=== PATIENT | male | born 1930 | race Caucasian/White ===

== ENCOUNTER 2018-05-16 17:49 | Inpatient (IN) ==
--- NOTE | 2018-05-16 18:33 | XR ---
EXAM DATE: 05/16/2018 6:30 PM EDT AGE/SEX: 88 years / Male INDICATIONS: Fever. CLINICAL DATA: This is the patient's initial encounter. Patient reports that signs and symptoms have been present for 1 day and indicates a pain score of 0/10. MEDICAL/SURGICAL HISTORY: None. None. COMPARISON: No prior exams available for comparison. FINDINGS: There is bilateral mostly basilar opacity, probably atelectasis. Heart size enlarged. No pneumothorax . No significant effusion. CONCLUSION: Cardiomegaly. Mild basilar density probably represents atelectasis. Electronically signed by: Robinson Amaya MD 05/16/2018 6:31 PM EDT
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
--- NOTE | 2018-05-16 18:49 | CT ---
EXAM DATE: 05/16/2018 6:43 PM EDT AGE/SEX: 88 years / Male INDICATIONS: Altered mental status. CLINICAL DATA: This is the patient's initial encounter. Patient reports that signs and symptoms have been present for 1 day and indicates a pain score of 0/10. MEDICAL/SURGICAL HISTORY: Cardiovascular disease. Hypertension. Coronary artery stent. RADIATION DOSE: 41.67 CTDI (mGy) COMPARISON: No prior exams available for comparison. TECHNIQUE: CT of the head without contrast. Using automated exposure control and adjustment of the mA and/or kV according to patient size, radiation dose was kept as low as reasonably achievable to ob tain optimal diagnostic quality images. DICOM format image data is available electronically for revi ew and comparison. FINDINGS: Cerebrum: The ventricles are normal for age. No evidence of midline shift, mass lesion, hemorrhage or acute infarction. No extraaxial fluid collections are seen. Posterior Fossa: The cerebellum and brainstem are intact. The 4th ventricle is midline. The cerebe llopontine angle is unremarkable. Extracranial: The visualized portion of the orbits is intact. Skull: The calvaria is intact. No evidence of skull fracture. CONCLUSION: 1. No acute intracranial abnormalities. . Electronically signed by: Robinson Amaya MD 05/16/2018 6:47 PM EDT
[2018-05-16 18:55] LABS: Baso % (Auto) 0.2 % (0.0-2.0); Eos % (Auto) 0.1 % (0.0-4.0); Hematocrit 42.3 % (39.0-51.0); Hemoglobin 14.5 gm/dL (13.0-17.0); Lymph # (Auto) 1.5 th/mm3 (1.0-4.8); Lymph % (Auto) 9.2 % (9.0-44.0); Mean Corpuscular HGB Conc 34.2 % (32.0-36.0); Mean Corpuscular Hemoglobin 30.5 pg (27.0-34.0); Mean Corpuscular Volume 89.3 fL (80.0-100.0); Mean Platelet Volume 8.7 fL (7.0-11.0); Mono # (Auto) 1.6 th/mm3 (0.0-0.9); Mono % (Auto) 9.9 % (0.0-8.0); Neut # (Auto) 13.1 th/mm3 (1.8-7.7); Neut % (Auto) 80.6 % (16.0-70.0); Platelet Count 217 th/mm3 (150-450); Red Blood Count 4.73 mil/mm3 (4.50-5.90); Red Cell Distribution Width 15.3 % (11.6-17.2); White Blood Count 16.2 th/mm3 (4.0-11.0)
[2018-05-16 19:01] LABS: Activated Partial Thrombo Time 25.2 sec (24.3-30.1); INR 1.1 Ratio; Prothrombin Time 11.1 sec (9.8-11.6)
[2018-05-16 19:08] LABS: Anion Gap 8 meq/L (5-15); Aspartate Aminotransferase 248 U/L (15-37); Blood Urea Nitrogen 87 mg/dL (7-18); Calcium 9.1 mg/dL (8.5-10.1); Carbon Dioxide 25.4 meq/L (21.0-32.0); Chloride 112 meq/L (98-107); Glomerular Filtration Rate 36 mL/min (>89); Glucose,Random 118 mg/dL (74-106); Magnesium 2.9 mg/dL (1.5-2.5); Potassium 4.1 meq/L (3.5-5.1); Sodium 145 meq/L (136-145)
[2018-05-16 19:09] LABS: Alanine Aminotransferase 152 U/L (12-78)
[2018-05-16] MEDS ORDERED: Metoprolol Inj 5 MG/5 ML Vial IV.PUSH ONE (19:11)
[2018-05-16] MEDS ORDERED: Sod Chloride 0.9% Inj 1,000 ML IV.SIG SCH (19:15)
[2018-05-16] MEDS ORDERED: Sod Chloride 0.9% Inj 500 ML IV.SIG SCH (19:15)
[2018-05-16 19:23] LABS: Alkaline Phosphatase 78 U/L (45-117); Creatine Kinase 5481 U/L (39-308); Total Protein 7.5 g/dL (6.4-8.2); Troponin I 0.04 ng/mL (0.02-0.05)
[2018-05-16] MEDS ORDERED: Sod Chloride 0.9% Inj 1,000 ML IV.CONT SCH (19:30)
[2018-05-16 19:35] LABS: CKMB Percent 0.6 % (0.0-4.0); Creatine Kinase MB 30.2 ng/mL (0.5-3.6)
[2018-05-16 22:15] LABS: Bacteria,Urine Rare /hpf; Bilirubin,Urine Negative (Negative); Clarity,Urine Hazy (Clear); Color,Urine Yellow (Yellw/Straw); Glucose,Urine (UA) Negative (Negative); Hyaline Casts,Urine 12 /lpf (0-3); Leukocyte Esterase,Urine Negative (Negative); Mucus,Urine Few /lpf (Occasional); Nitrite,Urine Negative (Negative); Specific Gravity,Urine 1.012 (1.002-1.035); Squamous Epithelial Cell,Urine <1 /hpf (0-5)
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
[2018-05-16] MEDS: Heparin - SQ 10,000 UNITS/ML Vial SQ SCH (23:01)
[2018-05-16] MEDS: Sod Chloride 0.9% Inj 1,000 ML IV.CONT SCH (23:02)
[2018-05-17 02:01] LABS: Troponin I 0.04 ng/mL (0.02-0.05)
[2018-05-17 02:14] LABS: CKMB Percent 0.5 % (0.0-4.0); Creatine Kinase MB 16.9 ng/mL (0.5-3.6)
[2018-05-17] MEDS: Sod Chloride 0.9% Inj 1,000 ML IV.CONT SCH ×3 (06:38→23:57)
[2018-05-17] MEDS: Heparin - SQ 10,000 UNITS/ML Vial SQ SCH ×3 (06:38→23:57)
--- NOTE | 2018-05-17 08:14 | P.PN ---
Subjective Interval history: Follow-up for rhabdomyolysis, SAY, self-care deficit. Patient is currently awake, alert, oriented to self, hospital in [place], and May 17 (but not the year). He is a poor historian and difficult to obtain timeline of events leading up to his admission. Patient states he feels just very weak, which he believes is secondary to not eating for multiple days. He denies any specific medical complaints including no headache, lightheadedness, chest pain, shortness of breath, cough, abdominal pain, nausea/vomiting, diarrhea, or urinary complaints. He states he has 2 walkers at home however these were out of reach and that is how he ended up on the floor. Physical Exam Vital signs: Vital Signs 05/16/18 18:00 05/16/18 18:07 05/16/18 20:40 Temperature 97.6 F Pulse Rate 108 H 89 77 Respiratory Rate 20 18 Blood Pressure 200/90 H 166/89 H Pulse Oximetry 97 97 97 05/16/18 22:46 05/16/18 23:21 05/17/18 04:00 Temperature 97.8 F 97.5 F L Pulse Rate 69 61 73 Respiratory Rate 18 17 17 Blood Pressure 154/79 H 148/67 H 117/58 L Pulse Oximetry 97 96 96 Intake & Output 05/16/18 05/17/18 05/17/18 18:59 06:59 18:59 Intake Total 1999 Balance 1999 Weight 99.79 kg Intake: IV 1999 NS Inj 1,000 ML @ 125 mls/hr IV 1000 / 1000 .CONT .Q8H CAROLINE Rx#:[id number] NS Inj 1,000 ML @ Wide Open IV. 1000 / 1000 SIG BOLUS CAROLINE Rx#:[id number] Other: # Incontinent Voids 2 Narrative: GENERAL: Well-nourished, well-developed elderly male patient in [facility]. SKIN: Warm and dry. No rash. HEENT: Normocephalic. Atraumatic. Pupils equal and round. Mucous membranes pink and moist. CARDIOVASCULAR: Regular rate and rhythm. No murmur appreciated. RESPIRATORY: No accessory muscle use. Clear to auscultation. Breath sounds equal bilaterally. GASTROINTESTINAL: Abdomen soft, non-tender, nondistended. Normoactive bowel sounds x4. MUSCULOSKELETAL: No obvious deformities. Extremities without clubbing, cyanosis , or edema. NEUROLOGICAL: Awake and alert. No obvious cranial nerve deficits. Motor grossly within normal limits. Moving all extremities equally and spontaneously with generalized weakness. Normal speech. PSYCHIATRIC: Appropriate mood and affect; insight and judgment fair. Results - Labs CBC & Chem 7: 05/16/18 18:30 05/16/18 18:30 Laboratory Results - last 24 hr 05/16/18 05/16/18 05/16/18 18:30 18:30 18:30 WBC 16.2 H RBC 4.73 Hgb 14.5 Hct 42.3 MCV 89.3 MCH 30.5 MCHC 34.2 RDW 15.3 Plt Count 217 MPV 8.7 Neut % (Auto) 80.6 H Lymph % (Auto) 9.2 [place] % (Auto) 9.9 H Eos % (Auto) 0.1 Baso % (Auto) 0.2 Neut # (Auto) 13.1 H Lymph # (Auto) 1.5 [place] # (Auto) 1.6 H Eos # (Auto) 0.0 Baso # (Auto) 0.0 WBC Differential . Differential Comment Auto diff final PT 11.1 INR 1.1 APTT 25.2 Sodium 145 Potassium 4.1 Chloride 112 H Carbon Dioxide 25.4 Anion Gap 8 BUN 87 H Creatinine 1.80 H Estimated GFR 36 L Random Glucose 118 H Lactic Acid Calcium 9.1 Magnesium 2.9 H Total Bilirubin 1.1 H AST 248 H ALT 152 H Alkaline Phosphatase 78 Total Creatine Kinase 5481 H CK-MB (CK-2) 30.2 H CK-MB (CK-2) % 0.6 Troponin I 0.04 B-Natriuretic Peptide Total Protein 7.5 Albumin 4.0 Urine Color Urine Clarity Urine pH Ur Specific [place] Urine Protein Urine Glucose (UA) Urine Ketones Urine Occult Blood Urine Nitrate Urine Bilirubin Urine Urobilinogen Ur Leukocyte Esterase Urine RBC Urine WBC Ur Squamous Epith Cells Urine Bacteria Hyaline Casts Urine Mucus Micro UA Comment Ur Microscopic Review Urine Culture Comments 05/16/18 05/16/18 05/16/18 18:30 18:30 20:44 WBC RBC Hgb Hct MCV MCH MCHC RDW Plt Count MPV Neut % (Auto) Lymph % (Auto) [place] % (Auto) Eos % (Auto) Baso % (Auto) Neut # (Auto) Lymph # (Auto) [place] # (Auto) Eos # (Auto) Baso # (Auto) WBC Differential Differential Comment PT INR APTT Sodium Potassium Chloride Carbon Dioxide Anion Gap BUN Creatinine Estimated GFR Random Glucose Lactic Acid 1.7 Calcium Magnesium Total Bilirubin AST ALT Alkaline Phosphatase Total Creatine Kinase CK-MB (CK-2) CK-MB (CK-2) % Troponin I B-Natriuretic Peptide 104 H Total Protein Albumin Urine Color Yellow Urine Clarity Hazy H Urine pH 5.0 Ur Specific [place] 1.012 Urine Protein Negative Urine Glucose (UA) Negative Urine Ketones Negative Urine Occult Blood Large H Urine Nitrate Negative Urine Bilirubin Negative Urine Urobilinogen Less than 2 Ur Leukocyte Esterase Negative Urine RBC 4 H Urine WBC 1 Ur Squamous Epith Cells <1 Urine Bacteria Rare H Hyaline Casts 12 Urine Mucus Few H Micro UA Comment Culture not ind Ur Microscopic Review Not Reportable Urine Culture Comments Culture not ind 05/17/18 00:55 WBC RBC Hgb Hct MCV MCH MCHC RDW Plt Count MPV Neut % (Auto) Lymph % (Auto) [place] % (Auto) Eos % (Auto) Baso % (Auto) Neut # (Auto) Lymph # (Auto) [place] # (Auto) Eos # (Auto) Baso # (Auto) WBC Differential Differential Comment PT INR APTT Sodium Potassium Chloride Carbon Dioxide Anion Gap BUN Creatinine Estimated GFR Random Glucose Lactic Acid Calcium Magnesium Total Bilirubin AST ALT Alkaline Phosphatase Total Creatine Kinase 3232 H CK-MB (CK-2) 16.9 H CK-MB (CK-2) % 0.5 Troponin I 0.04 B-Natriuretic Peptide Total Protein Albumin Urine Color Urine Clarity Urine pH Ur Specific [place] Urine Protein Urine Glucose (UA) Urine Ketones Urine Occult Blood Urine Nitrate Urine Bilirubin Urine Urobilinogen Ur Leukocyte Esterase Urine RBC Urine WBC Ur Squamous Epith Cells Urine Bacteria Hyaline Casts Urine Mucus Micro UA Comment Ur Microscopic Review Urine Culture Comments - Imaging Impressions Chest X-Ray 05/16/18 18:07 CONCLUSION: Cardiomegaly. Mild basilar density probably represents atelectasis. Head CT 05/16/18 18:07 CONCLUSION: 1. No acute intracranial abnormalities. . Assessment and Plan - Plan 88 y/o male with a history of anxiety, HTN, and hypothyroid was brought in as a cool act after he called 911 because he could not get off the floor. Cool act lifted by ER physician. Rhabdomyolysis, CPK 5481: suspect secondary to fall -Continue IVF NS at 125, monitor for overload -Trend CPK, improving, CPK 3232 today SAY: Cr 1.8, no previous labs to compare. Suspect secondary to dehydration and poor recent oral intake -Continue IVF -avoid nephrotoxins -monitor renal function Transaminitis: possibly hemoconcentrated due to dehydration -no GI complaints -check liver U/S -avoid hepatotoxins -Trend liver enzymes Self care deficit, patient lives alone, estranged from daughters and feels grand -daughter is trying to hurt him -check B12, thiamine, TSH -PT/OT consult -Case Management consulted for possible placement CHF, unknown, patient denies history, no significant signs of fluid overload -BNP minimally elevated at 104 -hold Lasix for now due to kidney function -monitor fluid status -Resume carvedilol Hypertension, chronic -Resume home medications, monitor vitals Hypothyroid, chronic -Resume home medications -check TSH DVT prophylaxis: Heparin sq Discharge Planning: Await PT/OT eval. Likely needs placement.
[2018-05-17 09:18] LABS: Baso % (Auto) 0.3 % (0.0-2.0); Eos # (Auto) 0.2 th/mm3 (0.0-0.4); Eos % (Auto) 1.5 % (0.0-4.0); Hemoglobin 11.8 gm/dL (13.0-17.0); Lymph # (Auto) 1.7 th/mm3 (1.0-4.8); Lymph % (Auto) 14.5 % (9.0-44.0); Mean Corpuscular HGB Conc 33.6 % (32.0-36.0); Mean Corpuscular Hemoglobin 30.5 pg (27.0-34.0); Mean Corpuscular Volume 90.7 fL (80.0-100.0); Mean Platelet Volume 8.9 fL (7.0-11.0); Mono # (Auto) 1.3 th/mm3 (0.0-0.9); Mono % (Auto) 11.1 % (0.0-8.0); Neut # (Auto) 8.4 th/mm3 (1.8-7.7); Neut % (Auto) 72.6 % (16.0-70.0); Platelet Count 174 th/mm3 (150-450); Red Blood Count 3.86 mil/mm3 (4.50-5.90); Red Cell Distribution Width 15.2 % (11.6-17.2); White Blood Count 11.5 th/mm3 (4.0-11.0)
[2018-05-17 09:36] LABS: Calcium 7.9 mg/dL (8.5-10.1); Carbon Dioxide 21.8 meq/L (21.0-32.0); Potassium 3.2 meq/L (3.5-5.1)
[2018-05-17 09:53] LABS: Troponin I 0.04 ng/mL (0.02-0.05)
[2018-05-17 10:06] LABS: CKMB Percent 0.5 % (0.0-4.0)
--- NOTE | 2018-05-17 11:07 | US ---
EXAM DATE: 05/17/2018 11:03 AM EDT AGE/SEX: 88 years / Male INDICATIONS: Elevated lab values. CLINICAL DATA: This is the patient's initial encounter. Patient reports that signs and symptoms have been present for 3 days and indicates a pain score of 0/10. MEDICAL/SURGICAL HISTORY: Hypertension. Hypothyroidism. Coronary artery stent. Hip replacement . COMPARISON: No prior exams available for comparison. MEASUREMENTS: Liver:__ 13.5 cm. Common Bile Duct:__ 4mm. Right Kidney:__ 10.0 x 4.7 x 5.7 cm. FINDINGS: Liver: Mildly echogenic without focal lesion or ductal dilatation. Portal Vein: Hepatopedal flow seen in portal vein. Common Duct: No intraluminal mass or stone visualized. Gallbladder: Demonstrates no wall thickening or pericholecystic fluid. Stones visualized. Pancreas: Not well visualized. Right Kidney: No hydronephrosis. Small cortical cyst measures 7 mm. Other: None. CONCLUSION: 1. Liver is echogenic which can be seen with hepatic steatosis. 2. Cholelithiasis. 3. Right renal cyst. Electronically signed by: Guru Hernandez MD 05/17/2018 11:06 AM EDT
[2018-05-17 14:05] LABS: Thyroid Stimulating Hormone 3.59 uIU/mL (0.358-3.740)
[2018-05-17 14:09] LABS: CKMB Percent 0.5 % (0.0-4.0)
--- NOTE | 2018-05-17 15:10 | ECG ---
Date Performed: 05/17/2018 Time Performed: 06:01:05 PTAGE: 88 years EKG: ATRIAL FIBRILLATION WITH ABERRANT CONDUCTION OR VENTRICULAR PREMATURE COMPLEXES BORDERLINE LEFT AXIS DEVIATION POSSIBLE LEFT VENTRICULAR HYPERTROPHY MODERATE T-WAVE ABNORMALITY, CONSIDER ANTER IOR ISCHEMIA Since the previous tracing, no significant change noted ABNORMAL ECG NO PREVIOUS TRACING DOCTOR: Jung Keating Interpretating Date/Time 05/17/2018 14:56:34
--- NOTE | 2018-05-17 15:10 | ECG ---
Date Performed: 05/17/2018 Time Performed: 00:40:23 PTAGE: 88 years EKG: Sinus rhythm WITH OCCASIONAL SUPRAVENTRICULAR PREMATURE COMPLEXES MARKED LEFT AXIS DEVIATION LEFT VENTRICULAR HYP ERTROPHY AND ST-T CHANGE Since the previous tracing, no significant change noted ABNORMAL ECG NO PREVIOUS TRACING DOCTOR: Jung Keating Interpretating Date/Time 05/17/2018 14:56:43
--- NOTE | 2018-05-17 15:10 | ECG ---
Date Performed: 05/16/2018 Time Performed: 19:08:55 PTAGE: 88 years EKG: ATRIAL FIBRILLATION WITH RAPID VENTRICULAR RESPONSE WITH ABERRANT CONDUCTION OR VENTRICULAR PREMATURE COMPLEXES MARKED LEFT AXIS DEVIATION VOLTAGE CRITERIA FOR LVH NONSPECIFIC ST & T-WAVE ABNO RMALITY Since the previous tracing, no significant change noted ABNORMAL ECG NO PREVIOUS TRACING DOCTOR: Jung Keating Interpretating Date/Time 05/17/2018 14:56:52
[2018-05-18] MEDS: Acetaminophen 325 MG Tablet PO PRN ×4 (01:39→23:38)
[2018-05-18] MEDS: Heparin - SQ 10,000 UNITS/ML Vial SQ SCH ×3 (05:15→22:28)
[2018-05-18] MEDS: Sod Chloride 0.9% Inj 1,000 ML IV.CONT SCH ×3 (06:46→22:29)
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
[2018-05-18 12:00] LABS: Baso % (Auto) 0.1 % (0.0-2.0); Eos % (Auto) 0.2 % (0.0-4.0); Hemoglobin 11.9 gm/dL (13.0-17.0); Lymph # (Auto) 0.8 th/mm3 (1.0-4.8); Lymph % (Auto) 4.9 % (9.0-44.0); Mean Corpuscular HGB Conc 33.1 % (32.0-36.0); Mean Corpuscular Hemoglobin 30.2 pg (27.0-34.0); Mean Corpuscular Volume 91.4 fL (80.0-100.0); Mean Platelet Volume 8.9 fL (7.0-11.0); Mono # (Auto) 1.5 th/mm3 (0.0-0.9); Neut % (Auto) 85.8 % (16.0-70.0); Platelet Count 161 th/mm3 (150-450); Red Blood Count 3.94 mil/mm3 (4.50-5.90); Red Cell Distribution Width 15.5 % (11.6-17.2); White Blood Count 16.3 th/mm3 (4.0-11.0)
[2018-05-18 12:34] LABS: Calcium 8.2 mg/dL (8.5-10.1); Carbon Dioxide 25.6 meq/L (21.0-32.0); Potassium 3.2 meq/L (3.5-5.1)
[2018-05-18 12:55] LABS: CKMB Percent 0.4 % (0.0-4.0); Creatine Kinase MB 2.8 ng/mL (0.5-3.6)
[2018-05-18 15:05] LABS: Hepatitits B Surface Antigen Nonreactive (Nonreactive)
--- NOTE | 2018-05-18 15:15 | XR ---
EXAM DATE: 05/18/2018 3:12 PM EDT AGE/SEX: 88 years / Male INDICATIONS: . Fever starting today CLINICAL DATA: This is the patient's initial encounter. Patient reports that signs and symptoms have been present for 1 day and indicates a pain score of 0/10. MEDICAL/SURGICAL HISTORY: None. None. COMPARISON: [facility], CHEST 1V SINGLE AP, 05/16/2018. . FINDINGS: Heart is enlarged. There is mild interstitial prominence. There is no evidence consolidation, pleural effusion or pneumothorax. The portion of the bony skeleton visualized is unremarkable. CONCLUSION: Cardiomegaly with mild interstitial prominence. Superimposed inflammatory process cannot be entirely excluded. Electronically signed by: Wai Brown MD 05/18/2018 3:14 PM EDT
[2018-05-18 15:38] LABS: Amorphous Sediment,Urine Rare /hpf; Bilirubin,Urine Negative (Negative); Clarity,Urine Clear (Clear); Color,Urine Yellow (Yellw/Straw); Glucose,Urine (UA) Negative (Negative); Hyaline Casts,Urine 1 /lpf (0-3); Leukocyte Esterase,Urine Negative (Negative); Mucus,Urine Few /lpf (Occasional); Nitrite,Urine Negative (Negative); Specific Gravity,Urine 1.017 (1.002-1.035); Squamous Epithelial Cell,Urine <1 /hpf (0-5)
[2018-05-18 15:42] LABS: Hepatitis A IgM Antibody Nonreactive (Nonreactive)
--- NOTE | 2018-05-18 15:43 | P.PNWCN ---
Wound Care Nurse Consult Description: Consult for wound management of hip and arm per Ebony LEON. Communicated with: NISHI Ritchie Recommendation: Daily to left hip: Cleanse with Normal Saline only. Pat dry. Apply Santyl nickel thick to necrotic wound from edge to edge. Cover with moistened gauze (NS, squeeze out excess). Secure with dry cover. Additional information: Patient seen in H pod for skin assessment. For skin tears please follow protocol found on skin assessment tool: Versatel one to remain in place for 7 days changing outer dressing when soiled. Wound/Pressure Injury - Wound Left Hip Wound Staging: Unstageable Wound Assessment: Admission Wound Type: Pressure Injury Is This a Chronic Wound: No Length (cm): 9 (cm) Width (cm): 5 (cm) Depth (cm): 0 (cm) Wound Bed Appearance: Yellow (necrotic adherent slough) Drainage Amount: None Drainage Odor: No Odor Dressing Status: Dry & Intact
[2018-05-18] MEDS: Collagenase Oint 30 GM Tube TOPICAL SCH (19:17)
[2018-05-18] MEDS ORDERED: Bisacodyl 10 MG Supp RECTAL ONE (23:01)
[2018-05-19] MEDS: Sod Chloride 0.9% Inj 1,000 ML IV.CONT SCH ×2 (03:42→06:42)
[2018-05-19] MEDS: Acetaminophen 325 MG Tablet PO PRN ×2 (05:09→21:31)
[2018-05-19] MEDS: Heparin - SQ 10,000 UNITS/ML Vial SQ SCH ×3 (05:09→21:31)
[2018-05-19 07:37] LABS: Baso % (Auto) 0.2 % (0.0-2.0); Eos % (Auto) 0.1 % (0.0-4.0); Hemoglobin 10.4 gm/dL (13.0-17.0); Lymph # (Auto) 0.6 th/mm3 (1.0-4.8); Lymph % (Auto) 4.2 % (9.0-44.0); Mean Corpuscular HGB Conc 33.6 % (32.0-36.0); Mean Corpuscular Hemoglobin 30.2 pg (27.0-34.0); Mean Corpuscular Volume 90.1 fL (80.0-100.0); Mean Platelet Volume 8.7 fL (7.0-11.0); Mono # (Auto) 1.1 th/mm3 (0.0-0.9); Neut # (Auto) 11.8 th/mm3 (1.8-7.7); Neut % (Auto) 87.5 % (16.0-70.0); Platelet Count 121 th/mm3 (150-450); Red Blood Count 3.44 mil/mm3 (4.50-5.90); Red Cell Distribution Width 15.1 % (11.6-17.2); White Blood Count 13.5 th/mm3 (4.0-11.0)
[2018-05-19 08:15] LABS: Calcium 7.8 mg/dL (8.5-10.1); Carbon Dioxide 23.4 meq/L (21.0-32.0); Potassium 3.3 meq/L (3.5-5.1)
[2018-05-19] MEDS: Collagenase Oint 30 GM Tube TOPICAL SCH (09:11)
--- NOTE | 2018-05-19 14:32 | P.PNIM ---
Subjective Interval history: SOB when getting up to walk. did not void today per nursing staff. no abdominal pain. Physical Exam Vital signs: Vital Signs 05/18/18 15:56 05/18/18 20:00 05/18/18 20:50 Temperature 98.3 F 97.9 F Pulse Rate 84 95 H 98 H Respiratory Rate 18 22 Blood Pressure 126/59 L 148/72 H Pulse Oximetry 98 97 05/18/18 23:50 05/18/18 23:57 05/19/18 00:00 Temperature 97.7 F Pulse Rate 110 H 99 H 93 H Respiratory Rate 22 22 Blood Pressure 142/70 H Pulse Oximetry 96 05/19/18 04:00 05/19/18 05:20 05/19/18 08:00 Temperature 101.1 F H 99.8 F H Pulse Rate 91 H 96 H 92 H Respiratory Rate 22 18 Blood Pressure 136/62 135/63 Pulse Oximetry 95 95 05/19/18 12:00 Temperature 97.9 F Pulse Rate 96 H Respiratory Rate 19 Blood Pressure 160/72 H Pulse Oximetry 98 Intake & Output 05/18/18 05/19/18 05/19/18 18:59 06:59 18:59 Intake Total 1820 / 1820 1650 / 1650 Balance 1820 / 1820 1650 / 1650 Weight 99.1 kg Intake: IV 1000 / 1000 1210 / 1210 NS Inj 1,000 ML @ 125 mls/hr IV 1000 / 1000 1210 / 1210 .CONT .Q8H [facility] Rx#:[id number] Oral 820 / 820 440 / 440 Other: # Voids 1,120 # Incontinent Voids 1 # Incontinent Bowel Movements 1 Narrative: GENERAL: Well-nourished, well-developed elderly male patient in [facility]. SKIN: Warm and dry. Multiple abrasions and ecchymosis in various stages of healing throughout extremities. CARDIOVASCULAR: Regular rate and rhythm. RESPIRATORY: No accessory muscle use. diminished breath sounds on bilateral bases GASTROINTESTINAL: Abdomen soft, non-tender, nondistended. Normoactive bowel sounds x4. MUSCULOSKELETAL: No obvious deformities. Extremities without clubbing, cyanosis , has trace to 1+ edema NEUROLOGICAL: Awake and alert to person, place, time. No obvious cranial nerve deficits. Motor grossly within normal limits. Moving all extremities equally and spontaneously with generalized weakness. Normal speech. PSYCHIATRIC: Appropriate mood and affect; insight and judgment fair. Results - Labs CBC & Chem 7: 05/19/18 06:57 05/19/18 06:57 Laboratory Results - last 24 hr 05/17/18 05/18/18 05/18/18 12:40 13:15 14:00 WBC RBC Hgb Hct MCV MCH MCHC RDW Plt Count MPV Neut % (Auto) Lymph % (Auto) [place] % (Auto) Eos % (Auto) Baso % (Auto) Neut # (Auto) Lymph # (Auto) [place] # (Auto) Eos # (Auto) Baso # (Auto) WBC Differential Differential Comment Sodium Potassium Chloride Carbon Dioxide Anion Gap BUN Creatinine Estimated GFR Random Glucose Calcium Thiamine 126 Urine Color Yellow Urine Clarity Clear Urine pH 5.0 Ur Specific [place] 1.017 Urine Protein 30 H Urine Glucose (UA) Negative Urine Ketones Negative Urine Occult Blood Small H Urine Nitrate Negative Urine Bilirubin Negative Urine Urobilinogen Less than 2 Ur Leukocyte Esterase Negative Urine RBC 3 Urine WBC 1 Ur Squamous Epith Cells <1 Amorphous Sediment Rare H Hyaline Casts 1 Granular Casts 1 Urine Mucus Few H Micro UA Comment Culture not ind Ur Microscopic Review Not Reportable Urine Culture Comments Culture not ind Hepatitis A IgM Ab Nonreactive Hep Bs Antigen Nonreactive Hep B Core IgM Ab Nonreactive Hep C IgG Ab Nonreactive 05/19/18 05/19/18 06:57 06:57 WBC 13.5 H RBC 3.44 L Hgb 10.4 L Hct 31.0 L MCV 90.1 MCH 30.2 MCHC 33.6 RDW 15.1 Plt Count 121 L MPV 8.7 Neut % (Auto) 87.5 H Lymph % (Auto) 4.2 L [place] % (Auto) 8.0 Eos % (Auto) 0.1 Baso % (Auto) 0.2 Neut # (Auto) 11.8 H Lymph # (Auto) 0.6 L [place] # (Auto) 1.1 H Eos # (Auto) 0.0 Baso # (Auto) 0.0 WBC Differential . Differential Comment Auto diff final Sodium 145 Potassium 3.3 L Chloride 113 H Carbon Dioxide 23.4 Anion Gap 9 BUN 24 H Creatinine 1.11 Estimated GFR 63 L Random Glucose 114 H Calcium 7.8 L Thiamine Urine Color Urine Clarity Urine pH Ur Specific [place] Urine Protein Urine Glucose (UA) Urine Ketones Urine Occult Blood Urine Nitrate Urine Bilirubin Urine Urobilinogen Ur Leukocyte Esterase Urine RBC Urine WBC Ur Squamous Epith Cells Amorphous Sediment Hyaline Casts Granular Casts Urine Mucus Micro UA Comment Ur Microscopic Review Urine Culture Comments Hepatitis A IgM Ab Hep Bs Antigen Hep B Core IgM Ab Hep C IgG Ab Microbiology 05/16/18 18:15 Blood - Peripheral Aerobic Blood Culture - Preliminary No growth in 3 days 05/16/18 18:15 Blood - Peripheral Anaerobic Blood Culture - Preliminary No growth in 3 days 05/16/18 18:15 Blood - Peripheral Aerobic Blood Culture - Preliminary No growth in 3 days 05/16/18 18:15 Blood - Peripheral Anaerobic Blood Culture - Preliminary No growth in 3 days - Imaging Impressions Chest X-Ray 05/18/18 00:00 CONCLUSION: Cardiomegaly with mild interstitial prominence. Superimposed inflammatory process cannot be entirely excluded. Assessment and Plan - Plan 88 y/o male with a history of anxiety, HTN, and hypothyroid was brought in as a cool act after he called 911 because he could not get off the floor. Cool act lifted by ER physician. 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: improved on IVF avoid nephrotoxins SIRS: +Leukocytosis WBC persists with fever spike 101 with likely sepsis with underlying early community acquired pneumonia -repeat CXR PA/Lat shows possible inflammatory process -Blood cultures with NGTD Start IV rocephin and zithromax Transaminitis: possibly hemoconcentrated due to dehydration -no GI complaints -Liver U/S reviewed, liver is echogenic which can be seen with hepatic steatosis ; cholelithiasis -lft trended down Self care deficit: patient lives alone, estranged from daughters and feels grand -daughter is trying to hurt him -B12 and TSH wnl -PT/OT consult, recommends rehab -Case Management consulted for placement Nephew at bedside and providing social support CHF, unknown, Dose of Lasix today due to SOB and fluid overload -Resume carvedilol Hypertension, chronic -Resume home medications, monitor vitals Hypothyroid, chronic -Resume home medications -TSH wnl hypokalemia - replete DVT prophylaxis: Heparin sq Continue PT Discharge Planning: will need SNF when med stable
[2018-05-19] MEDS: Azithromycin 250 MG Tablet PO SCH (14:59)
[2018-05-19] MEDS: Carvedilol 12.5 MG Tablet PO SCH ×2 (19:10→21:31)
[2018-05-20] MEDS: Levothyroxine 150 MCG Tablet PO SCH (06:12)
[2018-05-20] MEDS: Heparin - SQ 10,000 UNITS/ML Vial SQ SCH ×3 (06:12→21:39)
[2018-05-20 08:04] LABS: Carbon Dioxide 25.5 meq/L (21.0-32.0); Potassium 3.7 meq/L (3.5-5.1)
[2018-05-20] MEDS: Carvedilol 12.5 MG Tablet PO SCH ×2 (08:56→21:38)
[2018-05-20] MEDS: Collagenase Oint 30 GM Tube TOPICAL SCH (08:56)
[2018-05-20] MEDS: Azithromycin 250 MG Tablet PO SCH (08:56)
--- NOTE | 2018-05-20 11:36 | P.PNIM ---
Subjective Interval history: Patient states that his breathing is better. There is fever spike overnight per nursing staff. No complaints of chest pain. Did urinate on his own last night. Physical Exam Vital signs: Vital Signs 05/19/18 12:00 05/19/18 14:47 05/19/18 16:00 Temperature 97.9 F 99.3 F Pulse Rate 96 H 89 98 H Respiratory Rate 19 18 18 Blood Pressure 160/72 H 121/65 Pulse Oximetry 98 95 05/19/18 20:00 05/19/18 21:56 05/19/18 23:55 Temperature 102.1 F H Pulse Rate 85 89 73 Respiratory Rate 18 25 H Blood Pressure 144/62 H Pulse Oximetry 96 05/20/18 00:00 05/20/18 00:59 05/20/18 02:00 Temperature 100.0 F H 98.1 F Pulse Rate 82 75 Respiratory Rate 18 20 Blood Pressure 138/64 Pulse Oximetry 95 05/20/18 03:45 05/20/18 04:00 05/20/18 06:31 Temperature 99.8 F H Pulse Rate 71 74 78 Respiratory Rate 18 18 Blood Pressure 141/62 H Pulse Oximetry 95 05/20/18 08:00 05/20/18 10:15 Temperature 97.3 F L Pulse Rate 70 69 Respiratory Rate 20 22 Blood Pressure 137/62 Pulse Oximetry 95 Intake & Output 05/19/18 05/20/18 05/20/18 18:59 06:59 18:59 Intake Total 340 / 340 Output Total 500 / 500 Balance 340 / 340 -500 / -500 Weight 108.7 kg Intake: IV 100 / 100 Rocephin Inj 1,000 MG In NS Inj 100 / 100 100 ML @ 200 mls/hr IV.SIG Q24H [facility] Rx#:[id number] Oral 240 / 240 Output: Urine 500 / 500 Other: # Voids 2 # Bowel Movements 0 Narrative: GENERAL: Well-nourished, well-developed elderly male patient in [facility]. SKIN: Warm and dry. Multiple abrasions and ecchymosis in various stages of healing throughout extremities. CARDIOVASCULAR: Regular rate and rhythm. RESPIRATORY: Few expiratory wheezes on the right base, no retractions. GASTROINTESTINAL: Abdomen soft, non-tender, nondistended. Normoactive bowel sounds x4. MUSCULOSKELETAL: No obvious deformities. Extremities without clubbing, cyanosis , has trace to 1+ edema NEUROLOGICAL: Awake and alert to person, place, time. No obvious cranial nerve deficits. Motor grossly within normal limits. Moving all extremities equally and spontaneously with generalized weakness. Normal speech. PSYCHIATRIC: Appropriate mood and affect; insight and judgment fair. Results - Labs CBC & Chem 7: 05/19/18 06:57 05/20/18 06:38 Laboratory Results - last 24 hr 05/20/18 06:38 Sodium 141 Potassium 3.7 Chloride 108 H Carbon Dioxide 25.5 Anion Gap 8 BUN 23 H Creatinine 1.21 Estimated GFR 57 L Random Glucose 93 Calcium 8.0 L Microbiology 05/16/18 18:15 Blood - Peripheral Aerobic Blood Culture - Preliminary No growth in 4 days 05/16/18 18:15 Blood - Peripheral Anaerobic Blood Culture - Preliminary No growth in 4 days 05/16/18 18:15 Blood - Peripheral Aerobic Blood Culture - Preliminary No growth in 4 days 05/16/18 18:15 Blood - Peripheral Anaerobic Blood Culture - Preliminary No growth in 4 days Assessment and Plan - Plan 88 y/o male with a history of anxiety, HTN, and hypothyroid was brought in as a cool act after he called 911 because he could not get off the floor. Cool act lifted by ER physician. 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 SIRS: +Leukocytosis WBC persists with fever spike 101 with likely sepsis with underlying early community acquired pneumonia -repeat CXR PA/Lat shows possible inflammatory process -Blood cultures with NGTD Start IV rocephin and zithromax Monitor for any further fever for the next 24 hours. DuoNeb treatment Transaminitis: possibly hemoconcentrated due to dehydration -no GI complaints -Liver U/S reviewed, liver is echogenic which can be seen with hepatic steatosis ; cholelithiasis -lft trended down Self care deficit: patient lives alone, estranged from daughters and feels grand -daughter is trying to hurt him -B12 and TSH wnl -PT/OT consult, recommends rehab -Case Management consulted for placement Nephew at bedside and providing social support CHF, unknown, and mild exacerbation Lasix will be resumed -Resume carvedilol Check 2D echo to evaluate for ejection fracture Hypertension, chronic -Resume home medications, monitor vitals Hypothyroid, chronic -Resume home medications -TSH wnl hypokalemia - replete Urinary retentionresolved, Flomax initiated DVT prophylaxis: Heparin sq Continue PT Discharge Planning: will need SNF when medically stable Possible discharge to [facility] facility in the next 24-48 hours
--- NOTE | 2018-05-20 16:09 | P.DIET ---
Nutritional Evaluation Type of nutrition evaluation: initial Nutrition screening: [facility] Screening comments: 05/20/18 [facility] Wound; unstageable pressure injury Subjective Subjective Comments: Pt eating lunch when visited; pt's nephew at bedside. Pt says he ate "everything " on his breakfast tray today. Pt says he tolerates dairy products and is receptive to receiving Ensure Enlive twice daily. Objective - Diagnosis Rhabdomyoloysis - Objective % IBW: 136 Body Weight Used for Calculations: IBW (72.7 kg) Energy Needs - Lower Range (kCal/kg): 30 Energy Needs - Upper Range (kCal/kg): 35 Lower Limit kCal/kg (kCals): 2,181 Upper Limit kCal/kg (kCals): 2,545 Lower Limit Protein Factor (Grams per Kg): 1.4 Upper Limit Protein Factor (Grams per Kg): 1.6 Lower Protein Needs (Protein): 102 Upper Protein Needs (Protein): 116 Fluid Factor (ml/kg): 30 Estimated Fluid Needs (ml): 2,181 Dietitian Reviewed in Medical Record: Current diet, Curent medications, Intake & Output, Labs, Medical history, Wound/DTI Diet Order: Cardiac Wound Care Note: 05/18/18 WOCN note-left hip Objective Comments: PMH includes: anxiety, Cataract, hBP, hypothyroidism LBM 05/19 Assessment Assessment: Pt iis at high nutrition risk r/t diagnosis and increased needs for wound healing. Variable po intake 10% to 75%. Send Milk and yogurt TID and low fat cheese BI for additional protein. Send Ensure Enlive BID(= 350 kcal and 20g protein per serving)to aid in wound healing(Enlive contains HMB for wound healing). Labs reviewed. Dietitian following. Recommendations: 1. Send Milk and yogurt TID and low fat cheese BI for additional protein 2. Send Ensure Enlive BID to aid in wound healing 3. Dietitian following Dietitian to Monitor: Lab values, Supplement acceptance, Intake & Output, Weight change, PO Intake, Wound/skin status, Medical course
--- NOTE | 2018-05-20 18:41 | ECHRPT ---
Indication: HEART FAILURE CONCLUSIONS Technically difficult study. The left ventricular systolic function is low normal with an estimated ejection fraction in the rang e of 50- 55%. There was limited left ventricular wall motion assessment due to poor endocardial visualization. Doppler parameters are consistent with impaired left ventricular relaxtion (grade 1 diastolic dysfun ction). There is trace tricuspid valve regurgitation. BP: / HR: Rhythm: Sinus MEASUREMENTS (Male / Female) Normal Values Technical Quality:Technically difficult study 2D ECHO LV Diastolic Diameter PLAX 5.6 cm 4.2 - 5.9 / 3.9 - 5.3 cm LV Systolic Diameter PLAX 4.6 cm IVS Diastolic Thickness 1.0 cm 0.6 - 1.0 / 0.6 - 0.9 cm LVPW Diastolic Thickness 0.8 cm 0.6 - 1.0 / 0.6 - 0.9 cm LV Relative Wall Thickness 0.3 RV Internal Dim ED PLAX 3.5 cm LVOT Diameter 2.4 cm Aortic Root Diameter 3.7 cm LA Systolic Diameter LX 4.0 cm 3.0 - 4.0 / 2.7 - 3.8 cm DOPPLER AV Peak Velocity 96.6 cm/s AV Peak Gradient 3.7 mmHg LVOT Peak Velocity 82.4 cm/s LVOT Peak Gradient 2.7 mmHg AV Area Cont Eq pk 3.9 cm Mitral E Point Velocity 65.6 cm/s Mitral A Point Velocity 77.0 cm/s Mitral E to A Ratio 0.9 TR Peak Velocity 92.3 cm/s TR Peak Gradient 3.4 mmHg PV Peak Velocity 76.3 cm/s PV Peak Gradient 2.3 mmHg FINDINGS LEFT VENTRICLE The left ventricle is not well visualized. The left ventricular systolic function is low normal with an estimated ejection fraction in the rang e of 50- 55%. There was limited left ventricular wall motion assessment due to poor endocardial visualization. Doppler parameters are consistent with impaired left ventricular relaxtion (grade 1 diastolic dysfun ction). RIGHT VENTRICLE The right ventricle was not well visualized. LEFT ATRIUM The left atrial size is normal. RIGHT ATRIUM The right atrium is not well visualized. ATRIAL SEPTUM The interatrial septum not well visualized. MITRAL VALVE The mitral valve is not well visualized. No mitral valve regurgitation. No mitral valve stenosis. AORTIC VALVE The aortic valve is not well visualized. No aortic valve stenosis. No aortic valve regurgitation. TRICUSPID VALVE The tricuspid valve is not well visualized. There is trace tricuspid valve regurgitation. No tricuspid valve stenosis. PULMONARY VALVE No pulmonary valve regurgitation. VESSELS The inferior vena cava is normal in size. Jassi Adamson DO (Electronically Signed) Final Date:20 May 2018 18:40
[2018-05-20] MEDS: Acetaminophen 325 MG Tablet PO PRN (21:38)
[2018-05-21] MEDS: Acetaminophen 325 MG Tablet PO PRN ×2 (04:52→22:41)
[2018-05-21] MEDS: Heparin - SQ 10,000 UNITS/ML Vial SQ SCH ×3 (05:21→22:41)
[2018-05-21] MEDS: Levothyroxine 150 MCG Tablet PO SCH (06:14)
[2018-05-21 07:26] LABS: Baso % (Auto) 0.2 % (0.0-2.0); Eos # (Auto) 0.2 th/mm3 (0.0-0.4); Eos % (Auto) 2.4 % (0.0-4.0); Hematocrit 30.9 % (39.0-51.0); Hemoglobin 10.4 gm/dL (13.0-17.0); Lymph # (Auto) 0.9 th/mm3 (1.0-4.8); Lymph % (Auto) 9.1 % (9.0-44.0); Mean Corpuscular HGB Conc 33.8 % (32.0-36.0); Mean Corpuscular Hemoglobin 30.8 pg (27.0-34.0); Mean Corpuscular Volume 91.1 fL (80.0-100.0); Mean Platelet Volume 9.7 fL (7.0-11.0); Mono % (Auto) 10.4 % (0.0-8.0); Neut # (Auto) 7.6 th/mm3 (1.8-7.7); Neut % (Auto) 77.9 % (16.0-70.0); Platelet Count 107 th/mm3 (150-450); Red Blood Count 3.39 mil/mm3 (4.50-5.90); Red Cell Distribution Width 15.4 % (11.6-17.2); White Blood Count 9.7 th/mm3 (4.0-11.0)
[2018-05-21 07:56] LABS: Calcium 7.9 mg/dL (8.5-10.1); Carbon Dioxide 25.1 meq/L (21.0-32.0); Potassium 3.5 meq/L (3.5-5.1)
[2018-05-21] MEDS: Furosemide 40 MG Tablet PO SCH (08:43)
[2018-05-21] MEDS: Azithromycin 250 MG Tablet PO SCH (08:43)
[2018-05-21] MEDS: Carvedilol 12.5 MG Tablet PO SCH ×2 (08:45→22:41)
[2018-05-21] MEDS: Collagenase Oint 30 GM Tube TOPICAL SCH (08:46)
[2018-05-21 10:18] LABS: Lymphocytes 3 % (9-44); Metamyelocytes 1 % (0-1); Monocytes 7 % (0-8)
[2018-05-21 10:19] LABS: Platelet Morphology Normal (Normal); RBC Morphology Normal (Normal)
[2018-05-21] MEDS ORDERED: MethylPREDNISolone Sod Succinate Inj 40 MG/ML Vial IV.PUSH ONE (14:00)
--- NOTE | 2018-05-21 15:50 | P.PNIM ---
Subjective Interval history: 88-year-old male hospitalized for rhabdomyolysis secondary to a fall onto the floor with 3 days on floor. He states he did not sleep well overnight, has mild pain, is still wheezing. Physical Exam Vital signs: Vital Signs 05/20/18 16:00 05/20/18 16:22 05/20/18 19:55 Temperature 99.4 F Pulse Rate 78 65 70 Respiratory Rate 20 16 17 Blood Pressure 116/60 Pulse Oximetry 96 05/20/18 20:00 05/21/18 00:00 05/21/18 04:00 Temperature 98.8 F 98.6 F 98.1 F Pulse Rate 72 69 66 Respiratory Rate 18 18 20 Blood Pressure 121/58 L 125/60 140/66 Pulse Oximetry 95 96 95 05/21/18 04:47 05/21/18 08:00 05/21/18 09:42 Temperature 99.4 F Pulse Rate 78 67 69 Respiratory Rate 27 H 20 16 Blood Pressure 136/61 Pulse Oximetry 94 L 05/21/18 12:00 05/21/18 15:13 Temperature Pulse Rate 64 66 Respiratory Rate 16 Blood Pressure Pulse Oximetry Intake & Output 05/20/18 05/21/18 05/21/18 18:59 06:59 18:59 Intake Total 560 / 560 100 / 100 Output Total 1200 / 1200 Balance 560 / 560 -1100 / -1100 Weight 108.5 kg Intake: IV 100 / 100 Rocephin Inj 1,000 MG In NS Inj 100 / 100 100 ML @ 200 mls/hr IV.SIG Q24H [facility] Rx#:[id number] Oral 560 / 560 Output: Urine 1200 / 1200 Other: # Incontinent Voids 4 3 Date of Last Bowel Movement 05/20/18 05/20/18 # Bowel Movements 1 Narrative: GENERAL: AAOx3, no acute distress SKIN: Warm and dry. No rashes. Extensive bruising throughout all 4 limbs with periodic scrapes and skin tears HEAD: Atruamtic, normocephalic. EYES: No scleral icterus. No injection or drainage. ENT: Moist mucous membranes, patent nares, no erythema of oropharynx. NECK: Supple, trachea midline. No JVD or lymphadenopathy. Normal thyroid. CARDIOVASCULAR: Regular rate and rhythm. No murmurs, gallops, or rubs. RESPIRATORY: Bilateral moderate wheezing. No accessory muscle use. GASTROINTESTINAL: Abdomen soft, non-tender, nondistended, normal active bowel sounds MUSCULOSKELETAL: No cyanosis, or edema. NEURO: CN II-XII grossly intact, no focal deficits, no slurring of speech Results - Labs CBC & Chem 7: 05/21/18 05:38 05/21/18 05:38 Laboratory Results - last 24 hr 05/21/18 05/21/18 05:38 05:38 WBC 9.7 RBC 3.39 L Hgb 10.4 L Hct 30.9 L MCV 91.1 MCH 30.8 MCHC 33.8 RDW 15.4 Plt Count 107 L MPV 9.7 Prelim Diff (Auto) Slide review pending Neut % (Auto) 77.9 H Lymph % (Auto) 9.1 [place] % (Auto) 10.4 H Eos % (Auto) 2.4 Baso % (Auto) 0.2 Neut # (Auto) 7.6 Lymph # (Auto) 0.9 L [place] # (Auto) 1.0 H Eos # (Auto) 0.2 Baso # (Auto) 0.0 WBC Differential Manual diff final Seg Neuts % (Manual) 54 Band Neuts % (Manual) 35 H Lymphocytes % (Manual) 3 L Monocytes % (Manual) 7 Metamyelocytes % (Man) 1 Abs Neuts (Manual) 8.7 H Differential Comment . Platelet Estimate Low L Platelet Morphology Normal RBC Morphology Normal Sodium 139 Potassium 3.5 Chloride 105 Carbon Dioxide 25.1 Anion Gap 9 BUN 28 H Creatinine 1.20 Estimated GFR 57 L Random Glucose 93 Calcium 7.9 L Microbiology 05/16/18 18:15 Blood - Peripheral Aerobic Blood Culture - Final No growth in 5 days 05/16/18 18:15 Blood - Peripheral Anaerobic Blood Culture - Final No growth in 5 days 05/16/18 18:15 Blood - Peripheral Aerobic Blood Culture - Final No growth in 5 days 05/16/18 18:15 Blood - Peripheral Anaerobic Blood Culture - Final No growth in 5 days Assessment and Plan - Plan 88 y/o male with a history of anxiety, HTN, and hypothyroid was brought in as a cool act after he called 911 because he could not get off the floor. Cool act lifted by ER physician. Rhabdomyolysis, SAY CPK 5481 following 3 days on floor CPK down to 700s today, no longer a threat to his kidneys Creatinine level is normalized SIRS, pneumonia, COPD Leukocytosis WBC persists with fever, subsequently diagnosed with pneumonia Repeat CXR PA/Lat shows possible inflammatory process Blood cultures with NGTD Continue IV rocephin and zithromax Continue duo nebs as needed Single dose of Solu-Medrol given today to address wheezing following duo nebs Transaminitis possibly hemoconcentrated due to dehydration Liver U/S reviewed, liver is echogenic which can be seen with hepatic steatosis ; cholelithiasis LFT trend remains downward Insomnia Patient is tolerant to temazepam Requested zolpidem Failure to thrive patient lives alone, estranged from daughters and feels grand-daughter is trying to hurt him B12 and TSH wnl Continue PT/OT, rehab on discharge CHF, 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
[2018-05-21] MEDS: Zolpidem Tartrate 5 MG Tablet PO PRN (22:41)
[2018-05-22] MEDS: Heparin - SQ 10,000 UNITS/ML Vial SQ SCH ×3 (06:05→22:30)
[2018-05-22] MEDS: Levothyroxine 150 MCG Tablet PO SCH (06:05)
[2018-05-22] MEDS: Azithromycin 250 MG Tablet PO SCH (09:04)
[2018-05-22] MEDS: Furosemide 40 MG Tablet PO SCH (09:05)
[2018-05-22] MEDS: Carvedilol 12.5 MG Tablet PO SCH ×2 (09:05→20:38)
[2018-05-22] MEDS: Collagenase Oint 30 GM Tube TOPICAL SCH (09:07)
[2018-05-22] MEDS ORDERED: MethylPREDNISolone Sod Succinate Inj 125 MG/2 ML Vial IV.PUSH ONE (12:00)
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
[2018-05-22] MEDS: Zolpidem Tartrate 5 MG Tablet PO PRN (20:38)
[2018-05-22] MEDS: Acetaminophen 325 MG Tablet PO PRN (20:38)
[2018-05-23] MEDS: Heparin - SQ 10,000 UNITS/ML Vial SQ SCH ×2 (05:39→14:12)
[2018-05-23] MEDS: Levothyroxine 150 MCG Tablet PO SCH (06:57)
[2018-05-23] MEDS: Carvedilol 12.5 MG Tablet PO SCH (09:49)
[2018-05-23] MEDS: Azithromycin 250 MG Tablet PO SCH (09:49)
[2018-05-23] MEDS: Furosemide 40 MG Tablet PO SCH (09:50)
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
[2018-05-23] MEDS: Collagenase Oint 30 GM Tube TOPICAL SCH (14:13)
== END 2018-05-23 18:32 ==
LOC: NEPE 17:49 → NEDA 22:00 → NEPHCDU 23:05 → N04 05-18 20:27
PROVIDERS: ADMIT Family Medicine; ATTEND Family Medicine